=== PATIENT | male | born 1995 | race Two or more races ===

== ENCOUNTER 2017-04-09 17:39 | Emergency (ER) | payer OTHER ==
[~2017-04-09] VITALS: Ht 170.2 cm; Wt 81.6 kg
[2017-04-09 18:03] VITALS: BP 133/77
[2017-04-09] MEDS ORDERED: HYDROcodone-ACET 5/325MG TAB PO ONE (20:00)
[2017-04-09] MEDS ORDERED: CLINDAMYCIN 600 MG/4 ML VL IM ONE (20:15)
== END 2017-04-09 21:55 | disposition home or self-care (01) ==
LOC: ER 17:39
DX: H70.91 Unspecified mastoiditis, right ear (principal)
CPT/HCPCS: 70450; 96372